=== PATIENT | female | born 1990 | race Caucasian/White ===

== ENCOUNTER 2017-02-16 03:34 | Emergency (ER) | payer OTHER ==
[~2017-02-16] VITALS: Ht 157.5 cm; Wt 48.0 kg
[~2017-02-16 03:34] MED LIST: FAMO40TA52 PO; IBUP-1542 PO; ONDA4TAB14 PO
[2017-02-16 03:37] VITALS: Ht 157.5 cm; Wt 48.0 kg
--- NOTE | 2017-02-16 03:56 | ERD ---
ER Documentation Chief Complaint Date/Time DATE: 02/16/17 TIME: 03:54 Chief Complaint body rash on and off x 1 month HPI 26-year-old female comes in the emergency department intermittent rash that is pruritic for the past month. She states that it started last night it is in both of her arms states that they were slightly more "puffy" and got better when she applied hydrocortisone. She states that this occurred after eating 5, she had some seafood and occurred before when she had seafood. Patient states that she works at a [employer] [facility], and reports that she smokes marijuana as well. She has no tongue swelling, trouble breathing or respiratory distress. ROS All systems reviewed and are negative except as per history of present illness. Medications Home Meds Active Scripts Famotidine* (Famotidine*) 40 Mg Tablet, 40 MG PO BID, #60 TAB Prov:YONG CIFUENTES PA-C 06/26/16 Ondansetron (Ondansetron Odt) 4 Mg Tab.rapdis, 4 MG PO Q6H Y for NAUSEA AND/OR VOMITING, #10 TAB Prov:YONG CIFUENTES PA-C 06/26/16 Ibuprofen* (Motrin*) 600 Mg Tab, 600 MG PO Q8, #30 Prov:DARY GUZMAN DO 07/10/15 Allergies Allergies: Coded Allergies: No Known Allergy (Unverified , 02/16/17) PMhx/Soc History of Surgery: No Anesthesia Reaction: No Hx Neurological Disorder: No Hx Respiratory Disorders: No Hx Cardiac Disorders: No Hx Psychiatric Problems: No Hx Miscellaneous Medical Probl: No Hx Alcohol Use: No Hx Substance Use: No Hx Tobacco Use: No Physical Exam Vitals Vital Signs Date Time Temp Pulse Resp B/P Pulse Ox O2 Delivery O2 Flow Rate FiO2 02/16/17 03:37 97.8 70 20 118/71 99 Physical Exam General: Well-developed, well-nourished. The patient appears in no acute distress. HEENT: Head is normocephalic, atraumatic. No scleral icterus. There is no angioedema, patient speaking in full sentences. Neck: Supple. Nontender. Lungs: Clear to auscultation. Normal air movement. Heart: Regular rate and rhythm. S1 and S2 are normal. No murmurs, gallops, or rubs. Abdomen: Nondistended. Extremities: No clubbing or cyanosis. Moving extremities x 4. No weakness. Neurologic: Alert and oriented 3. No focal deficits. Normal speech and gait. Skin: Hives that are scattered on extremities, rashes blanchable. Procedures/MDM 26-year-old female, comes in with hives. This appears to be a local mild reaction without any signs of respiratory distress. Rashes possibly due to food. She has been asked to continue hydrocortisone, take Benadryl for the itching. Patient's allergic symptoms have stabilized while they have been evaluated in the department without evidence of persistent systemic reaction. Patient is healthy and capable of treating and responding to rebound reactions. Patient appropriate for outpatient allergy work up and treatment. Departure Diagnosis: Primary Impression: Allergic reaction Condition: Good Patient Instructions: Allergic Reaction, Other (Local) Additional Instructions: Call your primary care doctor TOMORROW for an appointment during the next 1-2 days.See the doctor sooner or return here if your condition worsens before your appointment time. SHUBHAM RAYO PA-C February 16, 2017 03:56
== END 2017-02-16 03:58 | disposition home or self-care (01) ==
LOC: FTE 03:34
DX: T78.1XXA Other adverse food reactions, not elsewhere classified, initial encounter (principal)
CPT/HCPCS: 99282

== ENCOUNTER 2018-09-02 02:55 | Emergency (ER) | END 2018-09-02 04:51 | disposition home or self-care (01) ==